=== PATIENT | male | born 1960 | race Caucasian/White ===

== ENCOUNTER 2019-01-24 19:44 | Emergency (ER) | payer OTHER ==
[2019-01-24 20:08] VITALS: RESP 18
[2019-01-24] MEDS ORDERED: LISINOPRIL 20 MG TAB PO STA (20:52)
[2019-01-24] MEDS ORDERED: IBUPROFEN 600 MG TAB PO STA (21:01)
[2019-01-24] MEDS ORDERED: AMOXIC-POT CLAV 875MG STARTER 2 EACH TABLET PO STA (21:02)
--- NOTE | 2019-01-24 21:08 | ED ---
General Adult HPI - General Chief complaint: Skin/Abscess/Foreign Body Stated complaint: Finger Infection Time Seen by Provider: 01/24/19 19:55 Source: patient Mode of arrival: ambulatory Limitations: no limitations - History of Present Illness Initial comments: 58-year-old male patient presents to the emergency department today for evaluation of redness and pain to the left index finger. Patient states the area around the nail has been irritated since he was bit by a dog 5-6 weeks ago. States he did have to remove the fingernail. Patient states over the last several days the pain and swelling has been getting worse. States the area is very tender to touch. States he has been doing warm soaks and taking ibuprofen but it doesn't seem to be helping. He denies any difficulty with range of motion of the finger. Denies any fever or chills. Denies any swelling or pain to the hand. Patient denies any recent rash, shortness breath, chest pain, abdominal pain, nausea, vomiting, diarrhea, constipation, back pain, numbness, tingling, dizziness, weakness, hematuria, dysuria, urinary urgency, urinary frequency, headache, visual changes, or any other complaints. - Related Data Home Medications Medication Instructions Recorded Confirmed Acetaminophen [Tylenol 8 Hour] 650 mg PO Q4H PRN 01/24/19 01/24/19 Amoxicillin 500 mg PO Q8H 01/24/19 01/24/19 Chlorpheniramine Maleate 4 mg PO Q4H PRN 01/24/19 01/24/19 [Chlor-Trimeton] Ibuprofen [Motrin] 600 mg PO Q8HR PRN 01/24/19 01/24/19 Insulin Regular, Human [NovoLIN R] See Protocol SQ TID-W/MEALS 01/24/19 01/24/19 traZODone HCL 50 - 150 mg PO HS 01/24/19 01/24/19 Previous Rx's Medication Instructions Recorded Amoxic-Pot Clav 875-125Mg 1 tab PO Q12HR #20 tablet 01/24/19 [Augmentin 875-125] Lisinopril [Zestril] 20 mg PO DAILY #30 tab 01/24/19 Allergies Allergy/AdvReac Type Severity Reaction Status Date / Time No Known Allergies Allergy Verified 01/24/19 20:27 Review of Systems ROS Statement: Those systems with pertinent positive or pertinent negative responses have been documented in the HPI. ROS Other: All systems not noted in ROS Statement are negative. Past Medical History Past Medical History: Diabetes Mellitus History of Any Multi-Drug Resistant Organisms: None Reported Past Surgical History: No Surgical Hx Reported Past Psychological History: No Psychological Hx Reported Smoking Status: Former smoker Past Alcohol Use History: Abuse, Daily Past Drug Use History: None Reported General Exam Limitations: no limitations General appearance: alert, in no apparent distress Eye exam: Present: normal appearance, PERRL, EOMI. Absent: scleral icterus, conjunctival injection, periorbital swelling ENT exam: Present: normal exam, normal oropharynx, mucous membranes moist Respiratory exam: Present: normal lung sounds bilaterally. Absent: respiratory distress, wheezes, rales, rhonchi, stridor Cardiovascular Exam: Present: regular rate, normal rhythm, normal heart sounds. Absent: systolic murmur, diastolic murmur, rubs, gallop, clicks Extremities exam: Present: full ROM, normal capillary refill, other (Right index finger exhibits distal swelling, erythema, and purulent head formation surrounding the nail bed. He exhibits full range of motion. No tendon tenderness. Swelling is localized to the distal finger. Pad of finger is soft. ). Absent: normal inspection, tenderness, pedal edema, joint swelling, calf tenderness Neurological exam: Present: alert, oriented X3, CN II-XII intact Psychiatric exam: Present: normal affect, normal mood Skin exam: Present: warm, dry, intact, normal color. Absent: rash Course Vital Signs 01/24/19 01/24/19 01/24/19 19:45 20:02 20:48 Temperature 100.4 F H 98.2 F Pulse Rate 91 88 Respiratory 17 18 Rate Blood Pressure 183/114 173/137 182/122 O2 Sat by Pulse 95 98 Oximetry 01/24/19 21:26 Temperature Pulse Rate 77 Respiratory 18 Rate Blood Pressure 207/118 O2 Sat by Pulse Oximetry Medical Decision Making - Medical Decision Making 58-year-old male patient percents to the emergency department today for evaluation of swelling, redness and discomfort to the distal aspect of the left index finger. Patient did have a dog bite to the area 5-6 weeks ago. States he did have to remove the nail. States that over the last week the redness, swelling, tenderness has been worsening. Physical examination did reveal erythema, swelling, and fluctuance surrounding the nailbed. I did incise the area and drained out. Bloody drainage. Culture was obtained given dog bite history. He was started on Augmentin. Given Bactroban ointment to apply presents instructed to do warm soaks 3 times daily. Is instructed to follow-up with the primary care physician for recheck in 1-2 days. We also did refill his blood pressure medication as his blood pressure was quite elevated here in the emergency department. He is instructed take an any further refills from his primary care physician. Return parameters discussed in detail. He verbalizes understanding and agrees this plan. Disposition Clinical Impression: Paronychia of left index finger, Uncontrolled hypertension Disposition: HOME SELF-CARE Condition: Good Instructions (If sedation given, give patient instructions): Paronychia (ED), Hypertension (ED) Additional Instructions: Do warm soaks of the finger. Press to drain out any pus. Apply ointment three times daily. Complete oral antibiotic. Take blood pressure medication as direc paul, follow-up with your primary care physician for refills of this medication. Return to the emergency department for any new, worsening, or concerning symptoms Prescriptions: Lisinopril [Zestril] 20 mg PO DAILY #30 tab Is patient prescribed a controlled substance at d/c from ED?: No Referrals: None,Stated [Primary Care Provider] - 1-2 days Time of Disposition: 21:08
[2019-01-24] MEDS ORDERED: MUPIROCIN 2% OINT 22 GM TUBE TOPICAL SCH (22:00)
[2019-01-24 22:17] VITALS: BP 192/118; PULSE 81; TEMP 97.8
== END 2019-01-24 22:00 | disposition home or self-care (01) ==
LOC: EC 19:44
DX: L03.012 Cellulitis of left finger (principal); I10 Essential (primary) hypertension; E11.9 Type 2 diabetes mellitus without complications; Z79.4 Long term (current) use of insulin; Z79.899 Other long term (current) drug therapy; Z87.891 Personal history of nicotine dependence
CPT/HCPCS: 87070; 87205; 99283